=== PATIENT | female | born 1970 | race Caucasian/White ===

== ENCOUNTER 2020-11-17 17:24 | Emergency (ER) | payer OTHER, MEDICAID ==
[~2020-11-17] VITALS: Ht 172.7 cm; Wt 147.0 kg
[~2020-11-17 17:24] MED LIST: BUPR300T53 PO; DIPH25CA83 PO; ENOX40SY7 SQ; IRBE150T51 PO; ZOLP5TAB8 PO
[2020-11-17 17:27] VITALS: BP 166/110
[2020-11-17] MEDS ORDERED: LIDO20SO16 PO (18:52)
[2020-11-17] MEDS ORDERED: PENI250T2 PO (18:52)
== END 2020-11-17 19:06 | disposition home or self-care (01) ==
LOC: ER 17:25
DX: J02.0 Streptococcal pharyngitis (principal); Z88.5 Allergy status to narcotic agent; Z79.2 Long term (current) use of antibiotics; Z79.899 Other long term (current) drug therapy
CPT/HCPCS: 87880; 99283